=== PATIENT | female | born 1960 | race African-American/Black ===

== ENCOUNTER 2017-09-13 21:44 | Emergency (ER) | payer MEDICAID ==
[~2017-09-13] VITALS: Ht 165.1 cm; Wt 77.0 kg
[~2017-09-13 21:44] MED LIST: AMLO5TAB4 PO; ASPI-986 PO; SIMV10TA6 PO
[2017-09-13] MEDS ORDERED: KETOROLAC 60MG/2ML VIAL IM ONE (23:15)
[2017-09-14 02:00] VITALS: BP 132/80
== END 2017-09-14 02:35 | disposition home or self-care (01) ==
LOC: ER 21:54
DX: S70.01XA Contusion of right hip, initial encounter (principal); S70.11XA Contusion of right thigh, initial encounter; M54.5 Low back pain; I10 Essential (primary) hypertension; E78.00 Pure hypercholesterolemia, unspecified; Z79.82 Long term (current) use of aspirin; V23.4XXA Motorcycle driver injured in collision with car, pick-up truck or van in traffic accident, initial encounter; Y93.I9 Activity, other involving external motion; Y92.89 Other specified places as the place of occurrence of the external cause; Y99.8 Other external cause status
CPT/HCPCS: 71045; 73502; 73552; 96372; 99284; J1885; Z7610

== ENCOUNTER 2023-10-17 13:00 | Emergency (ER) | payer MEDICAID ==
[~2023-10-17] VITALS: Ht 160 cm; Wt 72.6 kg
[~2023-10-17 13:00] MED LIST changes: -SIMV10TA6 PO; +SIMV10TA97 PO
[2023-10-17 13:05] VITALS: O2SAT 98
[2023-10-17] MEDS: ACETAMINOPHEN 325MG TABLET PO ONE (15:30)
[2023-10-17] MEDS ORDERED: IBUP-2028 MT (15:31)
[2023-10-17 15:55] VITALS: BP 128/89; PULSE 72; RESP 16; TEMP 98.6
== END 2023-10-17 17:08 | disposition home or self-care (01) ==
LOC: ER 13:40
DX: G89.29 Other chronic pain (principal); M25.512 Pain in left shoulder; M25.511 Pain in right shoulder; E78.00 Pure hypercholesterolemia, unspecified; I10 Essential (primary) hypertension; Z98.890 Other specified postprocedural states; Z96.653 Presence of artificial knee joint, bilateral
CPT/HCPCS: 73030; 99283

== ENCOUNTER 2024-01-29 10:06 | Emergency (ER) | payer MEDICAID ==
[~2024-01-29] VITALS: Ht 165.1 cm; Wt 81.0 kg
[~2024-01-29 10:06] MED LIST changes: +IBUP-2028 MT
[2024-01-29 10:25] VITALS: O2SAT 97
[2024-01-29 11:19] LABS: CLARITY URINE CLEAR (CLEAR); COLOR URINE YELLOW (YELLOW); GLUCOSE URINE NEGATIVE (NEGATIVE); KETONES URINE NEGATIVE (NEGATIVE); LEUKOCYTE ESTERASE URINE 2+ (NEGATIVE); NITRITE URINE NEGATIVE (NEGATIVE); OCCULT BLOOD URINE 1+ (NEGATIVE); PH URINE 6.5 (4.5-8.0); PROTEIN URINE NEGATIVE (NEGATIVE); SPECIFIC GRAVITY URINE 1.007 (1.005-1.030); UROBILINOGEN URINE 0.2 E.U./dL (0.2-1.0)
[2024-01-29 11:31] LABS: BACTERIA URINE TRACE; RBC URINE 0-2 /hpf (0-2); SQUAMOUS EPITHELIAL CELL URINE 3+ /lpf (RARE/1+); YEAST URINE NONE SEEN
[2024-01-29] MEDS ORDERED: METR-167 MT (12:19)
[2024-01-29 12:55] VITALS: BP 147/87; PULSE 85; RESP 18; TEMP 98.5
[2024-02-01 09:10] LABS: CHLAMYDIA TRACHOMATIS NAA Negative (Negative); NEISSERIA GONORRHOEAE NAA Negative (Negative)
== END 2024-01-29 12:57 | disposition home or self-care (01) ==
LOC: ER 10:06
DX: N76.0 Acute vaginitis (principal); I10 Essential (primary) hypertension; E78.00 Pure hypercholesterolemia, unspecified; Z98.890 Other specified postprocedural states; Z96.653 Presence of artificial knee joint, bilateral
CPT/HCPCS: 87491; 87591; 81003; 81025; 87086; 87210; 36415; 99284; Z7610

== ENCOUNTER 2024-05-11 00:39 | Emergency (ER) | payer MEDICAID ==
[~2024-05-11] VITALS: Ht 160 cm; Wt 80.5 kg
[~2024-05-11 00:39] MED LIST changes: +METR-167 MT
[2024-05-11 00:53] VITALS: TEMP 97.7; O2SAT 97
[2024-05-11] MEDS ORDERED: AMOX1TAB16 MT (04:23)
[2024-05-11 04:36] VITALS: BP 131/68; PULSE 78; RESP 16; O2SAT 98
== END 2024-05-11 04:36 | disposition home or self-care (01) ==
LOC: ER 00:39
DX: I88.9 Nonspecific lymphadenitis, unspecified (principal); I10 Essential (primary) hypertension; E78.00 Pure hypercholesterolemia, unspecified; Z96.659 Presence of unspecified artificial knee joint; Z98.890 Other specified postprocedural states; Z79.899 Other long term (current) drug therapy
CPT/HCPCS: 99283